=== PATIENT | female | born 1995 | race Caucasian/White ===

== ENCOUNTER 2017-01-04 14:32 | Outpatient (CLI) | payer BC ==
--- NOTE | 2017-01-05 18:38 | Diagnostic Imaging Report ---
[facility] [address] [facility] [address] [address] Report Submission Date: Jan 04, 2017 3:23:26 PM CDT Patient Study Name: CINDY KINNEY Date: Jan 04, 2017 2:55:08 PM CDT Modality Type: CR Gender: F Description: LOWER EXTREMITY : 89 Institution: [facility] Physician: GARCÍA PARK RIDGE Right foot 3 views Clinical history: Pain Technique AP lateral oblique Findings: There is no fracture or lytic change. Bone density is normal. Impression: Negative Electronically signed on Jan 04, 2017 3:23:26 PM CDT by: Sven NIELSON
== END 2017-01-04 14:33 ==
LOC: RAD 14:32
PROVIDERS: ATTEND Family Medicine
DX: M79.671 Pain in right foot (principal)
CPT/HCPCS: 73630

== ENCOUNTER 2018-07-01 13:12 | Emergency (ER) | payer SELFPAY ==
--- NOTE | 2018-07-01 13:25 | ED Physician Documentation ---
General Adult - HISTORIAN Historian: patient - HPI Stated Complaint: opiod withdrawal Chief Complaint: General Adult Onset: hours Timing: still present Further Comments: yes (Pt is a 22 yo female inmate incarcerated for heroine abuse. Pt was at [facility] rehab, but used 1 gm of heroine on 06-28-18 and was arrested. Pt has had n/v/diarrhea and muscle spasming that she says is painful. Pt presents with extreme flexion of both wrists. Pt has been taking dicyclomine 20 mg bid and vistaril 50 mg bid while in custody.) - ROS CONST: no problems EYES/ENT: none CVS/RESP: none GI/: vomiting, nausea, diarrhea MS/SKIN/LYMPH: none NEURO/PSYCH: other (withdrawal, muscle flexion) - PAST HX Past History: other (heroine abuse) Allergies/Adverse Reactions: Allergies Allergy/AdvReac Type Severity Reaction Status Date / Time No Known Allergies Allergy Verified 07/01/18 13:53 Home Medications: Ambulatory Orders Medication Instructions Recorded Dicyclomine HCl 20 mg PO BID 07/01/18 Hydroxyzine Pamoate [Vistaril] 50 mg PO D 07/01/18 - SOCIAL HX Smoking History: cigarettes Drug Use: heroin - FAMILY HX Family History: No - REVIEWED ASSESSMENTS Nursing Assessment Reviewed: Yes Vitals Reviewed: Yes Progress - Progress Progress: NS 500 cc IVF Benadryl 25 mg IV Ativan 1 mg IV Transfer to [facility]. Dr. David Witt. General Adult Physical Exam - PHYSICAL EXAM GENERAL APPEARANCE: moderate distress EENT: eye inspection normal, pharynx normal NECK: normal inspection, supple RESPIRATORY: no resp distress, chest non-tender, breath sounds normal CVS: reg rate & rhythm, heart sounds normal ABDOMEN: soft, no organomegaly, decreased BS BACK: normal inspection SKIN: warm/dry EXTREMITIES: other (spasm of b/l wrist with extreme flexion, resembles decorticate posturing) NEURO: oriented X3, other (extreme flexion of b/l wrists, resembling decorticate posturing. Pt is A&O x 3.) Discharge Clincal Impression: Heroin withdrawal Referrals: Inderjit Robbins MD [Primary Care Provider] - Condition: Fair Disposition: XFER [facility] Decision to Admit: NO Decision Time: 13:58
[2018-07-01] MEDS: diphenhydrAMINE HCL 50 MG/ML VIAL IVP ONE (13:40)
[2018-07-01] MEDS: LORazepam 2 MG/ML VIAL IVP ONE (13:40)
[2018-07-01] MEDS: 0.9 % SODIUM CHLORIDE 1,000 ML IV ONE (13:50)
[2018-07-01] MEDS: LORazepam 2 MG/ML VIAL ONE (13:52)
[2018-07-01 15:42] VITALS: BP 123/68
== END 2018-07-01 15:35 | disposition short-term general hospital (02) ==
LOC: ED 13:12
DX: F11.23 Opioid dependence with withdrawal (principal)
CPT/HCPCS: 85025; 93005; J1200; J2060; J7030; 96365; 96375; 99285